=== PATIENT | female | born 1995 | race Caucasian/White ===

== ENCOUNTER 2021-04-25 21:37 | Emergency (ER) | payer OTHER, SELFPAY ==
[2021-04-25] MEDS ORDERED: Boostrix 0.5 ML (Tdap) VIAL ONE (23:39)
[2021-04-26] MEDS ORDERED: Lidocaine 1% (PF) 30 ML VIAL ONE ×2 (00:36→00:41)
[2021-04-26] MEDS ORDERED: Bacitracin 1 PK ONE (01:27)
[2021-04-26] MEDS ORDERED: Cephalexin 250 MG CAP ONE (01:28)
== END 2021-04-26 01:45 | disposition home or self-care (01) ==
LOC: NAV ERS 21:37
DX: S60.451A Superficial foreign body of left index finger, initial encounter (principal); W45.8XXA Other foreign body or object entering through skin, initial encounter
CPT/HCPCS: 10120; 90715; J2001